=== PATIENT | female | born 1975 | race Caucasian/White ===

== ENCOUNTER 2018-03-15 14:24 | Emergency (ER) | payer BC ==
[2018-03-15] MEDS ORDERED: Ondansetron 4 MG/2 ML SDV IV ONE ×2 (15:04→17:40)
[2018-03-15] MEDS ORDERED: Sodium Chloride 0.9% 1,000 ML IV ONE (15:04)
[2018-03-15] MEDS ORDERED: Sodium Chloride 0.9% 10 ML Syringe FLUSH PRN (15:05)
[2018-03-15] MEDS ORDERED: HYDROmorphone 1 MG/ML Syringe IVPUSH ONE (15:05)
[2018-03-15 15:43] VITALS: BP 128/84
[2018-03-15 15:51] LABS: ANION GAP 12.8; CHLORIDE,CL 104 mmol/L (101-111); SODIUM,NA 138 mmol/L (135-145)
[2018-03-15] MEDS ORDERED: Iopamidol 612 MG/ML 100 ML Bottle IVPUSH ONE (16:25)
--- NOTE | 2018-03-15 17:58 | CT ---
Clinical history: 42-year-old female with abdominal pain and vomiting since 1:00 AM (WBC 13,700). No known surgeries. Scan technique: Volume acquisition of data from the abdomen and pelvis obtained without oral contrast but during intravenous infusion 100 cc nonionic Isovue contrast (3 cc/s via injector) while the patient was lying supine on the Siemens multi slice scanner [place], [place]. All data archived in the PACS system for storage, reformatting axial/sagittal/coronal planes and study. Interpretation: 1. Two (x2) small intrahepatic vascular lesions located respectively laterally right lobe (15 mm) and left lobe (25 mm). Probable cavernous hemangiomas. Normal hepatic size/anatomic configuration. No ductal dilatation or other intrahepatic mass lesion. 2. Gallbladder unremarkable. Small HH. Normal stomach, spleen, pancreas and adrenal glands. Normal caliber abdominal aorta. 3. Single 4 mm stone lower pole calyx left kidney and a solitary tiny punctate calcification upper pole contralateral right kidney. No sign of renal cortical mass lesion, inflammation or obstructive uropathy. 4. Normal uterus left of midline. Tiny follicular cysts both ovaries. No pelvic or abdominal mass lesion. No mesenteric or retroperitoneal lymphadenopathy, inflammatory "dirty" peritoneal fat, sign of mechanical bowel obstruction, ascites or free intraperitoneal air. Normal appendix extending laterally in the paracolic gutter up toward the lower hepatic margin. 5. Normal cardiac silhouette. Platelike atelectasis left lung base. Lower lobes otherwise unremarkable. 6. Surgical wires ovarian tubes (pelvis) bilaterally. CONCLUSION: Nephrolithiasis (nonobstructive). Probable small hemangiomas liver. Atelectasis left lower lobe. No sign of diverticulitis or other peritoneal inflammation.
--- NOTE | 2018-03-15 18:03 | EDM.PDOC ---
Scribed by Roya Fountain 03/15/18 [id number] for Kentrell Ortiz MD ED HPI GENERAL MEDICAL PROBLEM - General Chief Complaint: Abdominal Pain Stated Complaint: STOMACH ACHE [id number] Time Seen by Provider: 03/15/18 15:00 Source of Information: Reports: Patient, RN, RN Notes Reviewed History Limitations: Reports: No Limitations - History of Present Illness INITIAL COMMENTS - FREE TEXT/NARRATIVE: Patient presents to ER with epigastric pain that started this morning. For the past couple of hours it has been continuous. It is associated with nausea, vomiting and chills. The pain radiates straight to her back. Denies diarrhea or constipation. No past surgical history to the abdomen. Onset: Today Duration: Getting Worse Location: Reports: Abdomen Quality: Reports: Burning, Sharp Severity: Severe Improves with: Reports: None Worsens with: Reports: Other (if she tries to lay down or if she tries to eat) Abdominal Pain Score (Numeric/FACES): 8 - Related Data Allergies Allergy/AdvReac Type Severity Reaction Status Date / Time No Known Allergies Allergy Verified 03/15/18 15:44 Home Meds: Home Meds Fluticasone Propionate 2 spray NASBOTH DAILY PRN 04/06/16 [History] Ibuprofen [Motrin] 200 mg PO Q6H PRN 04/06/16 [History] Loratadine 10 mg PO DAILY 04/06/16 [History] Naproxen Sodium [Aleve] 220 mg PO BID 04/06/16 [History] buPROPion [buPROPion XL] 300 mg PO QAM 04/06/16 [History] Past Medical History HEENT History: Reports: Impaired Vision, Other (See Below) Other HEENT History: CONTACT LENS BILAT Cardiovascular History: Reports: High Cholesterol Respiratory History: Reports: None Gastrointestinal History: Reports: None Genitourinary History: Reports: None [employer] History: Reports: Musculoskeletal History: Reports: Fracture, Other (See Below) Other Musculoskeletal History: CARPAL TUNNEL SYNDROME RIGHT - MAINTAINS WITH INJECTIONS. WRIST FRACTURE, RIGHT. PLANTAR FASCIITIS Neurological History: Reports: None Psychiatric History: Reports: Depression Endocrine/Metabolic History: Reports: Obesity/BMI 30+ Hematologic History: Reports: None Immunologic History: Reports: None Oncologic (Cancer) History: Reports: None Dermatologic History: Reports: None - Infectious Disease History Infectious Disease History: Reports: Chicken Pox - Past Surgical History HEENT Surgical History: Reports: Oral Surgery, Other (See Below) Female Surgical History: Reports: Tubal Ligation Musculoskeletal Surgical History: Reports: Other (See Below) Social & Family History - Family History HEENT: Cardiac: Respiratory: - Caffeine Use Caffeine Use: Reports: Coffee, Soda - Living Situation & Occupation Living situation: Reports: , with Family ED ROS GENERAL - Review of Systems Review Of Systems: ROS reveals no pertinent complaints other than HPI. ED EXAM, GI/ABD - Physical Exam Exam: See Below Exam Limited By: No Limitations General Appearance: Alert, WD/WN, No Apparent Distress, Obese Eyes: Bilateral: Normal Appearance Nose: Normal Inspection, Normal Mucosa, No Blood Throat/Mouth: Normal Lips, Normal Teeth, Normal Gums, Normal Oropharynx, Normal Voice, No Airway Compromise, Other (Dry oral membranes) Head: Atraumatic, Normocephalic Neck: Normal Inspection, Supple, Non-Tender, Full Range of Motion Respiratory/Chest: No Respiratory Distress, Lungs Clear, Normal Breath Sounds, No Accessory Muscle Use, Chest Non-Tender Cardiovascular: Normal Peripheral Pulses, Regular Rate, Rhythm, No Edema, No Gallop, No JVD, No Murmur, No Rub, Tachycardia GI/Abdominal Exam: Normal Bowel Sounds, Soft, No Distention, Tender (RUQ and epigastric region). No: Guarding, Rigid, Rebound (Female) Exam: Deferred Rectal (Female) Exam: Deferred Back Exam: Full Range of Motion, CVA Tenderness (R). No: CVA Tenderness (L) Extremities: Normal Inspection Neurological: Alert, Oriented, CN II-XII Intact, Normal Cognition, Normal Gait, No Motor/Sensory Deficits Psychiatric: Normal Affect, Normal Mood Skin Exam: Warm, Dry, Intact, Normal Color, No Rash Course - Vital Signs Last Recorded V/S: Last Vital Signs Temp 36.8 C 03/15/18 15:39 Pulse 111 H 03/15/18 15:39 Resp 14 03/15/18 15:39 BP 128/84 03/15/18 15:39 Pulse Ox 100 03/15/18 15:39 - Orders/Labs/Meds Orders: Active Orders 24 hr Category Date Time Status Peripheral IV Care [RC] . DIRECTED Care 03/15/18 15:05 Active Abdomen Pelvis w Cont [CT] Urgent Exams 03/15/18 16:25 Taken Sodium Chloride 0.9% [Saline Flush] Med 03/15/18 15:05 Active 10 ml FLUSH ASDIRECTED PRN Peripheral IV Insertion Adult [OM.PC] Stat Oth 03/15/18 15:04 Ordered Medication Orders Sodium Chloride (Saline Flush) 10 ml FLUSH ASDIRECTED PRN PRN Reason: Keep Vein Open Labs: Laboratory Tests 03/15/18 03/15/18 03/15/18 Range/Units 15:20 15:21 15:21 WBC 13.7 H (5.0-10.0) 10^3/uL RBC 4.44 (4.2-5.4) 10^6/uL Hgb 13.7 (12.0-16.0) g/dL Hct 40.2 (37.0-47.0) % MCV 90.5 (80-100) fL MCH 30.9 (27.0-34.0) pg MCHC 34.1 (33.0-35.0) g/dL Plt Count 327 (150-450) 10^3/uL Neut % (Auto) 82.3 H (42.2-75.2) % Lymph % (Auto) 11.9 L (20.5-50.1) % Harvey % (Auto) 5.3 (2-8) % Eos % (Auto) 0.4 L (1.0-3.0) % Baso % (Auto) 0.1 (0.0-1.0) % Sodium 138 (135-145) mmol/L Potassium 3.8 (3.6-5.0) mmol/L Chloride 104 (101-111) mmol/L Carbon Dioxide 25.0 (21.0-31.0) mmol/L Anion Gap 12.8 BUN 14 (7-18) mg/dL Creatinine 0.8 (0.6-1.3) mg/dL Est Cr Clr Drug Dosing TNP Estimated GFR (MDRD) > 60 BUN/Creatinine Ratio 17.50 Glucose 110 H (74-105) mg/dL Calcium 8.7 (8.4-10.2) mg/dl Total Bilirubin 0.6 (0.2-1.0) mg/dL AST 20 (10-42) IU/L ALT 18 (10-60) IU/L Alkaline Phosphatase 67 (42-121) IU/L Total Protein 7.8 (6.7-8.2) g/dl Albumin 4.2 (3.2-5.5) g/dl Globulin 3.6 Albumin/Globulin Ratio 1.17 Amylase 77 (28-100) U/L Lipase 29 (22-51) U/L Urine HCG, Qual Negative Meds: Medications Generic Name Dose Route Start Last Admin Trade Name Freq PRN Reason Stop Dose Admin Sodium Chloride 10 ml 03/15/18 15:05 Saline Flush FLUSH ASDIRECTED PRN Keep Vein Open Discontinued Medications Generic Name Dose Route Start Last Admin Trade Name Freq PRN Reason Stop Dose Admin Hydromorphone HCl 1 mg 03/15/18 15:05 03/15/18 15:25 Dilaudid IVPUSH 03/15/18 15:06 1 mg ONETIME ONE Administration Sodium Chloride 1,000 mls @ 999 mls/hr 03/15/18 15:04 03/15/18 15:24 Normal Saline IV 03/15/18 16:04 999 mls/hr .BOLUS ONE Administration Iopamidol 100 ml 03/15/18 16:25 03/15/18 16:29 Isovue-300 (61%) IVPUSH 03/15/18 16:26 100 ml ONETIME ONE Administration Ondansetron HCl 4 mg 03/15/18 15:04 03/15/18 15:25 Zofran IV 03/15/18 15:05 4 mg ONETIME ONE Administration Ondansetron HCl 4 mg 03/15/18 17:40 03/15/18 17:45 Zofran IV 03/15/18 17:41 4 mg ONETIME ONE Administration - Radiology Interpretation Free Text/Narrative:: CT Abd/Pelvis: no acute process, see Rad. report. Departure - Departure Time of Disposition: 17:58 Disposition: Home, Self-Care 01 Condition: Good Clinical Impression: Gastritis Qualifiers: Gastritis type: unspecified gastritis Chronicity: acute Gastritis bleeding: without bleeding Qualified Code(s): K29.00 - Acute gastritis without bleeding Abdominal pain Qualifiers: Abdominal location: epigastric Qualified Code(s): R10.13 - Epigastric pain - Discharge Information *PRESCRIPTION DRUG MONITORING PROGRAM REVIEWED*: Not Applicable *COPY OF PRESCRIPTION DRUG MONITORING REPORT IN PATIENT [place]: Not Applicable Instructions: Gastritis, Adult, [id number] Forms: ED Department Discharge Additional Instructions: Rx: Carafate 1g Rx: Promethazine 25mg *Do not drive while under the influence of this medication. Clear liquid diet until nausea and vomiting resolve, then advance to soft bland diet as tolerated. Avoid dairy products, fried or greasy foods, and spicy foods until completely improved. Follow up in clinic next week for recheck and consideration of referral to GI for upper endoscopy. Return to ER if pain becomes severe, you are unable to tolerated clear liquids without vomiting, or if any other emergent symptoms develop. - My Orders Last 24 Hours: My Active Orders 03/15/18 15:04 Peripheral IV Insertion Adult [OM.PC] Stat 03/15/18 15:05 Peripheral IV Care [RC] . DIRECTED Sodium Chloride 0.9% [Saline Flush] 10 ml FLUSH ASDIRECTED PRN 03/15/18 16:25 Abdomen Pelvis w Cont [CT] Urgent - Assessment/Plan Last 24 Hours: My Active Orders 03/15/18 15:04 Peripheral IV Insertion Adult [OM.PC] Stat 03/15/18 15:05 Peripheral IV Care [RC] . DIRECTED Sodium Chloride 0.9% [Saline Flush] 10 ml FLUSH ASDIRECTED PRN 03/15/18 16:25 Abdomen Pelvis w Cont [CT] Urgent I have read and agree with the documentation that has been completed regarding this visit. By signing this record, I attest that the documentation was completed in my physical presence and is an accurate record of the encounter.
== END 2018-03-15 18:20 | disposition home or self-care (01) ==
LOC: DL.ED 14:24
DX: K29.00 Acute gastritis without bleeding (principal); E78.00 Pure hypercholesterolemia, unspecified; F32.9 Major depressive disorder, single episode, unspecified; Z79.899 Other long term (current) drug therapy
CPT/HCPCS: 36415; 74177; 80053; 81025; 82150; 83690; 85025; 96361; 96374; 96375; 99284; J1170; J2405; J7030; Q9967

== ENCOUNTER 2022-02-19 15:06 | Emergency (ER) | payer BC ==
[2022-02-19 15:28] VITALS: BP 134/83; PULSE 81
== END 2022-02-19 16:48 | disposition home or self-care (01) ==
LOC: DL.ED 15:06
DX: S66.911A Strain of unspecified muscle, fascia and tendon at wrist and hand level, right hand, initial encounter (principal); K21.9 Gastro-esophageal reflux disease without esophagitis; Z86.16 Personal history of COVID-19; Z79.899 Other long term (current) drug therapy; W01.0XXA Fall on same level from slipping, tripping and stumbling without subsequent striking against object, initial encounter; Y92.000 Kitchen of unspecified non-institutional (private) residence as the place of occurrence of the external cause
CPT/HCPCS: 73110-RT; 99283

== ENCOUNTER 2024-05-02 06:24 | Day surgery (SDC) | payer BC ==
[2024-05-02] MEDS: Lactated Ringers 1,000 ML IV SCH (06:50)
[2024-05-02 08:06] VITALS: PULSE 60
[2024-05-02 08:53] VITALS: BP 114/64
== END 2024-05-02 08:58 | disposition home or self-care (01) ==
LOC: DL.ENDO 06:24
PROVIDERS: ATTEND Internal Medicine Gastroenterology
DX: Z12.11 Encounter for screening for malignant neoplasm of colon (principal)
CPT/HCPCS: 45378; J7120